=== PATIENT | female | born 1985 | race Caucasian/White ===

== ENCOUNTER 2021-12-01 03:45 | Outpatient (CLI) | payer BC, SELFPAY ==
[2021-12-01] MEDS: Methacholine 100 MG VIAL IH (16:35)
[2021-12-01] MEDS: Albuterol HFA 18 GM 200 PUFF INH IH (16:36)
[2021-12-01] MEDS: Inhaler, Assist Device 1 EACH MC (16:36)
--- NOTE | 2021-12-18 09:42 | W.PFT ---
Date of service: 12/01/21 Time of Service: 14:51 Pulmonary Function Test Result Requesting Provider Rosita Cadet Indications: Dyspnea on exertion, asthma Interpretation Spirometry: There is no airflow limitation. There was a 6% decrease in FEV1 with administration of 16mg/mL methacholine. Lung Volumes: Normal lung volumes Diffusion Capacity: Diffusion is normal Airway Pressure: Normal airways resistance. Impression Normal pulmonary function testing with a negative methacholine challenge. Clinical Correlation therefore is recommended.
== END 2021-12-01 03:46 | disposition home or self-care (01) ==
PROVIDERS: PCP Family Medicine; Visit Provider Family Medicine
DX: R06.09 Other forms of dyspnea (principal); J45.909 Unspecified asthma, uncomplicated; R05.8 Other specified cough; R07.89 Other chest pain; J32.8 Other chronic sinusitis; Z87.891 Personal history of nicotine dependence
CPT/HCPCS: 94060; 94070; 94726; 94729; 94010; J7674